=== PATIENT | male | born 1970 | race Caucasian/White ===

== ENCOUNTER 2016-07-25 17:02 | Emergency (ER) | payer OTHER ==
--- NOTE | 2016-07-25 20:33 | DIAGNOSTIC IMAGING REPORT ---
PROCEDURE: US SCROTUM/TESTICLE INDICATION: Left pain and swelling. TECHNIQUE: Guzman scale and color Doppler sonographic images through the scrotum were obtained. COMPARISON: None. FINDINGS: RIGHT TESTICLE: Right testicle is of normal size 94.4 x 2.4 cm) with normal vascularity. Right epididymis is within normal limits (2 mm epididymal cyst). Small right hydrocele. LEFT TESTICLE: Left testicle is of normal size (4.7 x 1.8 cm) with normal vascularity. There is a 1.5 cm simple left epididymal cyst. Left os addendum is otherwise normal. Small left hydrocele. IMPRESSION: 1. Normal testicles. 2. There is a 1.5 cm left epididymal cyst with a small 2 mm right epididymal cyst. 3. Small bilateral hydroceles. 4. Findings discussed with Dr. Paul Muñoz.
--- NOTE | 2016-07-25 20:36 | ED ORDER SUMMARY ---
..... Patient: ALBERT KELLEY OrderSheet VisitID: [id number] [place] [address] 46y, M Registration Date/Time: 07/25/2016 ORDER SHEET Weight: 70.3 kg (stated) Allergies: No Known Drug Allergy GENERAL ORDERS: US Scrotum/Testicular Urgent (17:17 07/25/2016 Kimberley Fajardo) ([facility] 17:22 Usha) (19:18 RFay) UA-Culture if indicated Urgent (17:07/25/2016 Kimberley Fajardo) ([facility] 17:22 Usha) (17:49 LWhalen R.N.) MEDICATION ORDERS: Tylenol PO 650 mg (NOW) (17:31 07/25/2016 Kimberley Fajardo) (17:48 LWhalen R.N.) Toradol IM 60 mg (NOW) (17:31 07/25/2016 Kimberley Fajardo) (17:49 LWhalen R.N.) IV FLUIDS: ORDER SHEET NOTES: [Electronically signed by Freya Harmon R.N. (20:47 07/25/2016)] [Electronically signed by Paul Muñoz Dr. (03:27 08/01/2016)] [Electronically locked/signed by Freya Harmon R.N. (20:47 07/25/2016)]
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
--- NOTE | 2016-07-25 20:36 | ED ORDER SUMMARY ---
..... Patient: ALBERT KELLEY OrderSheet [facility] VisitID: [id number] [place] [address] 46y, M Registration Date/Time: 07/25/2016 ORDER SHEET Weight: 70.3 kg (stated) Allergies: No Known Drug Allergy GENERAL ORDERS: US Scrotum/Testicular Urgent (17:17 07/25/2016 Kimberley Fajardo) ([facility] 17:22 Usha) (19:18 RFay) UA-Culture if indicated Urgent (17:07/25/2016 Kimberley Fajardo) ([facility] 17:22 Usha) (17:49 LWhalen R.N.) MEDICATION ORDERS: Tylenol PO 650 mg (NOW) (17:31 07/25/2016 Kimberley Fajardo) (17:48 LWhalen R.N.) Toradol IM 60 mg (NOW) (17:31 07/25/2016 Kimberley Fajardo) (17:49 LWhalen R.N.) IV FLUIDS: ORDER SHEET NOTES: [Electronically signed by Freya Harmon R.N. (20:47 07/25/2016)] [Electronically signed by Paul Muñoz Dr. (03:27 08/01/2016)] [Electronically locked/signed by Freya Harmon R.N. (20:47 07/25/2016)]
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
--- NOTE | 2016-08-01 03:28 | ED MED RECONCILIATION SUMMARY ---
Patient: ALBERT KELLEY Medication Reconciliation Report [facility] VisitID: [id number] [place] [address] 46y, M Registration Date/Time: 07/25/2016 Weight: 70.3 kg Height/Length: 71 in. BMI: 21.6 ALLERGIES: No Known Drug Allergy The patient's Home Medications are listed below: NONE. The source(s) of the original Home Medication information: Not obtained. The following Medications were given to the patient in the Emergency Department: Tylenol [PO] PO 650 mg, administered: 07/25/2016 5:48:00 PM Toradol [IM] IM 60 mg, administered: 07/25/2016 5:44:00 PM The following Medications were prescribed to the patient: Motrin (available over the counter): take according to label instructions. -- Paul Muñoz Dr. Percocet 5 mg/325 mg: take 1 tablet orally every 6 hours as needed for pain. Dispense fifteen (15). No refill. Substitution is permissible. -- Paul Muñoz Dr.
--- NOTE | 2016-08-01 03:28 | ED MED RECONCILIATION SUMMARY ---
Patient: ALBERT KELLEY Medication Reconciliation Report [facility] VisitID: [id number] [place] [address] 46y, M Registration Date/Time: 07/25/2016 Weight: 70.3 kg Height/Length: 71 in. BMI: 21.6 ALLERGIES: No Known Drug Allergy The patient's Home Medications are listed below: NONE. The source(s) of the original Home Medication information: Not obtained. The following Medications were given to the patient in the Emergency Department: Tylenol [PO] PO 650 mg, administered: 07/25/2016 5:48:00 PM Toradol [IM] IM 60 mg, administered: 07/25/2016 5:44:00 PM The following Medications were prescribed to the patient: Motrin (available over the counter): take according to label instructions. -- Paul Muñoz Dr. Percocet 5 mg/325 mg: take 1 tablet orally every 6 hours as needed for pain. Dispense fifteen (15). No refill. Substitution is permissible. -- Paul Muñoz Dr.
--- NOTE | 2016-08-01 03:28 | ED DISCHARGE INSTRUCTIONS ---
Patient: ALBERT KELLEY General Instructions [facility] VisitID: [id number] [place] [address] 46y, M Registration Date/Time: 07/25/2016 Single contusion. (left scrotum and testicle). No hematoma or skin abrasion. Left acute hydrocele INSTRUCTIONS Warnings: GENERAL WARNINGS: Return or contact your physician immediately if your condition worsens or changes unexpectedly, if not improving as expected, or if other problems arise. Specifically return if pain, vomiting, bleeding, breathing difficulty or fever. Your Current Medications: CONTINUE TAKING THE FOLLOWING MEDICATIONS: None*. Prescription Medications: Percocet 5 mg/325 mg: take 1 tablet orally every 6 hours as needed for pain. Dispense fifteen (15). No refill. Substitution is permissible. OTC Medications: Motrin (available over the counter): take according to label instructions. Follow-up: Return to the emergency department as needed. Follow up with your doctor in three days. Reason for referral: recheck today's concerns. Screening today revealed the patient's blood pressure to be in the normal range. The patient should follow up with a primary care provider for blood pressure management. Understanding of the discharge instructions verbalized by patient. ADDITIONAL INFORMATION Hydrocele [Type Not Specified] Inside the womb, the testicles first form in the abdomen of the male fetus. Just before , the testicles move down into the scrotum. As this happens, fluid from the abdomen may pass into the scrotum and become sealed off there in a small sac. This is called a non-communicating hydrocele . In some infants the passage between the abdomen and the scrotum remains open. In this case, the bulge may increase and decrease in size as the fluid passes back and forth from the abdomen to the scrotum. This is called a communicating hydrocele . The danger of this second kind of hydrocele is that it can lead to a hernia . A hernia looks like a painless bulge in the groin or scrotum. An infant hernia can cause gangrene and rupture of the intestine. This is a life-threatening emergency and requires immediate surgery. So, it must be watched for. Most hydroceles shrink and disappear by the age of one or two years and require no treatment. If the hydrocele does not go away by 2 years of age, it may need to be corrected with surgery. Home Care: A small hydrocele will not interfere in any way with normal activity. There are no special precautions that need to be taken. Follow Up with your doctor or as advised by our staff. with your doctor for routine exams to be sure the hydrocele is shrinking and that no hernia appears. Get Prompt Medical Attention if any of the following occur: -- A new bulge in the groin that appears just above the thigh crease or in the scrotum -- Changes in size of the hydrocele (getting smaller then larger then smaller; or gets larger and stays larger) -- Pain, redness or tenderness in the hydrocele Contusion,Soft Tissue You have a CONTUSION, which is a bruise with swelling and some bleeding under the skin. There are no broken bones. This injury takes a few days to a few weeks to heal. Home Care: 1) Keep the injured part elevated to reduce pain and swelling. This is especially important during the first 48 hours. 2) Make an ice pack (ice cubes in a plastic bag, wrapped in a towel) and apply for 20 minutes every 1-2 hours the first day. Continue this 3-4 times a day until the pain and swelling goes away. 3) You may use acetaminophen (Tylenol) or ibuprofen (Motrin, Advil) to control pain, unless another pain medicine was prescribed. [ NOTE : If you have chronic liver or kidney disease or ever had a stomach ulcer or GI bleeding, talk with your doctor before using these medicines.] Follow Up with your doctor or this facility if you are not improving within the next THREE days. [NOTE: If X-rays were taken, they will be reviewed by a radiologist. You will be notified of any new findings that may affect your care.] Get Prompt Medical Attention if any of the following occur: -- Pain or swelling increases -- Injured arm or leg becomes cold, blue, numb or tingly -- Redness, warmth or drainage from the skin Oxycodone Hydrochloride, Acetaminophen Oral tablet What is this medicine? ACETAMINOPHEN; OXYCODONE (a set a ALLAN zully fen; ox i KOE done) is a pain reliever. It is used to treat mild to moderate pain. How should I use this medicine? Take this medicine by mouth with a full glass of water. Follow the directions on the prescription label. Take your medicine at regular intervals. Do not take your medicine more often than directed. Talk to your student loan counselor regarding the use of this medicine in children. Special care may be needed. Patients over 65 years old may have a stronger reaction and need a smaller dose. What side effects may I notice from receiving this medicine? Side effects that you should report to your doctor or health coronary care unit nurse as soon as possible: allergic reactions like skin rash, itching or hives, swelling of the face, lips, or tongue breathing difficulties, wheezing confusion light headedness or fainting spells severe stomach pain yellowing of the skin or the whites of the eyes Side effects that usually do not require medical attention (report to your doctor or health coronary care unit nurse if they continue or are bothersome): dizziness drowsiness nausea vomiting What may interact with this medicine? alcohol antihistamines barbiturates like amobarbital, butalbital, butabarbital, methohexital, pentobarbital, phenobarbital, thiopental, and secobarbital benztropine drugs for bladder problems like solifenacin, trospium, oxybutynin, tolterodine, hyoscyamine, and methscopolamine drugs for breathing problems like ipratropium and tiotropium drugs for certain stomach or intestine problems like propantheline, homatropine methylbromide, glycopyrrolate, atropine, belladonna, and dicyclomine general anesthetics like etomidate, ketamine, nitrous oxide, propofol, desflurane, enflurane, halothane, isoflurane, and sevoflurane medicines for depression, anxiety, or psychotic disturbances medicines for sleep muscle relaxants naltrexone narcotic medicines (opiates) for pain phenothiazines like perphenazine, thioridazine, chlorpromazine, mesoridazine, fluphenazine, prochlorperazine, promazine, and trifluoperazine scopolamine tramadol trihexyphenidyl What if I miss a dose? If you miss a dose, take it as soon as you can. If it is almost time for your next dose, take only that dose. Do not take double or extra doses. Where should I keep my medicine? Keep out of the reach of children. This medicine can be abused. Keep your medicine in a safe place to protect it from theft. Do not share this medicine with anyone. Selling or giving away this medicine is dangerous and against the law. Store at room temperature between 20 and 25 degrees C (68 and 77 degrees F). Keep container tightly closed. Protect from light. This medicine may cause accidental overdose and if it is taken by other adults, children, or pets. Flush any unused medicine down the toilet to reduce the chance of harm. Do not use the medicine after the expiration date. What should I tell my health care provider before I take this medicine? They need to know if you have any of these conditions: brain tumor Crohn's disease, inflammatory bowel disease, or ulcerative colitis drink more than 3 alcohol containing drinks per day drug abuse or addiction head injury heart or circulation problems kidney disease or problems going to the bathroom liver disease lung disease, asthma, or breathing problems an unusual or allergic reaction to acetaminophen, oxycodone, other opioid analgesics, other medicines, foods, dyes, or preservatives or trying to get breast-feeding What should I watch for while using this medicine? Tell your doctor or health coronary care unit nurse if your pain does not go away, if it gets worse, or if you have new or a different type of pain. You may develop tolerance to the medicine. Tolerance means that you will need a higher dose of the medication for pain relief. Tolerance is normal and is expected if you take this medicine for a long time. Do not suddenly stop taking your medicine because you may develop a severe reaction. Your body becomes used to the medicine. This does NOT mean you are addicted. Addiction is a behavior related to getting and using a drug for a non-medical reason. If you have pain, you have a medical reason to take pain medicine. Your doctor will tell you how much medicine to take. If your doctor wants you to stop the medicine, the dose will be slowly lowered over time to avoid any side effects. You may get drowsy or dizzy. Do not drive, use machinery, or do anything that needs mental alertness until you know how this medicine affects you. Do not stand or sit up quickly, especially if you are an older patient. This reduces the risk of dizzy or fainting spells. Alcohol may interfere with the effect of this medicine. Avoid alcoholic drinks. There are different types of narcotic medicines (opiates) for pain. If you take more than one type at the same time, you may have more side effects. Give your health care provider a list of all medicines you use. Your doctor will tell you how much medicine to take. Do not take more medicine than directed. Call emergency for help if you have problems breathing. The medicine will cause constipation. Try to have a bowel movement at least every 2 to 3 days. If you do not have a bowel movement for 3 days, call your doctor or health coronary care unit nurse. Do not take Tylenol (acetaminophen) or medicines that have acetaminophen with this medicine. Too much acetaminophen can be very dangerous. Many nonprescription medicines contain acetaminophen. Always read the labels carefully to avoid taking more acetaminophen. You have been given the following additional information: Hydrocele, Type Not Specified Contusion, Soft Tissue Oxycodone Hydrochloride, Acetaminophen Oral tablet (Electronically signed by Paul Muñoz Dr. 08/01/2016 3:27)
--- NOTE | 2016-08-01 03:28 | ED MAR SUMMARY ---
..... Medication Administration Record [facility] [address] [place] [address] Patient: ALBERT KELLEY Visit ID: [id number] 46y, M Weight: 70.3 kg Height/Length: 71 in BMI: 21.6 ALLERGIES: No Known Drug Allergy Given 17:44 07/25/2016 Shana Munoz, RVeritoN. Medication Administered: TORADOL [IM] (KETOROLAC TROMETHAMINE), Dose: 60 mg IM. Medication Ordered: Toradol IM 60 mg (NOW). Given 17:48 07/25/2016 Shana Munoz, R.N. Medication Administered: TYLENOL [PO] (ACETAMINOPHEN), Dose: 650 mg Tablets PO. Medication Ordered: Tylenol PO 650 mg (NOW).
--- NOTE | 2016-08-01 03:28 | ED MAR SUMMARY ---
..... Medication Administration Record [facility] [address] [place] [address] Patient: ALBERT KELLEY Visit ID: [id number] 46y, M Weight: 70.3 kg Height/Length: 71 in BMI: 21.6 ALLERGIES: No Known Drug Allergy Given 17:44 07/25/2016 Shana Munoz, RVeritoN. Medication Administered: TORADOL [IM] (KETOROLAC TROMETHAMINE), Dose: 60 mg IM. Medication Ordered: Toradol IM 60 mg (NOW). Given 17:48 07/25/2016 Shana Munoz, R.N. Medication Administered: TYLENOL [PO] (ACETAMINOPHEN), Dose: 650 mg Tablets PO. Medication Ordered: Tylenol PO 650 mg (NOW).
== END 2016-07-25 20:47 | disposition home or self-care (01) ==
LOC: ED SRH 17:02
DX: S30.22XA Contusion of scrotum and testes, initial encounter (principal); X58.XXXA Exposure to other specified factors, initial encounter; Y93.89 Activity, other specified; Y92.9 Unspecified place or not applicable; Y99.9 Unspecified external cause status; N43.3 Hydrocele, unspecified; I10 Essential (primary) hypertension; Z87.891 Personal history of nicotine dependence
CPT/HCPCS: 90004